=== PATIENT | female | born 1990 | race Two or more races ===

== ENCOUNTER 2018-07-19 22:17 | Emergency (ER) | payer OTHER ==
[~2018-07-19] VITALS: Ht 157.5 cm; Wt 97.1 kg
[2018-07-19 22:22] VITALS: Ht 157.5 cm; Wt 97.1 kg
[2018-07-19 23:17] VITALS: BP 124/89
== END 2018-07-19 23:17 | disposition home or self-care (01) ==
LOC: ED 22:17
DX: E03.9 Hypothyroidism, unspecified (principal); E04.9 Nontoxic goiter, unspecified; E66.01 Morbid (severe) obesity due to excess calories; Z68.39 Body mass index [BMI] 39.0-39.9, adult